=== PATIENT | female | born 1975 | race Two or more races ===

== ENCOUNTER 2020-11-10 23:12 | Emergency (ER) | payer SELFPAY ==
[~2020-11-10] VITALS: Ht 160 cm; Wt 83.6 kg
[2020-11-10 23:45] LABS: BILIRUBIN,URINE NEGATIVE (NEG); CLARITY,URINE CLEAR; COLOR,URINE YELLOW; NITRITE,URINE NEGATIVE (NEG); PH,URINE 7.5 (<5.0-8.0); PROTEIN,URINE 30 mg/dL (NEG-TRACE); UROBILINOGEN,URINE 0.2 mg/dL (0.2 mg/dL)
[2020-11-10 23:48] VITALS: BP 156/65
[2020-11-10 23:50] LABS: BACTERIA,URINE FEW /HPF (0-FEW)
[2020-11-10 23:51] LABS: BARBITURATES NEG (NEG); BENZODIAZEPINES NEG (NEG); CANNABINOIDS POS (NEG); COCAINE POS (NEG); METHADONE NEG (NEG); OPIATES NEG (NEG); PHENCYCLIDINE NEG (NEG)
[2020-11-10 23:52] LABS: AMPHETAMINE/METHAMPHETAMINE NEG (NEG)
--- NOTE | 2020-11-10 23:57 | PHYS DOC ---
Past Medical History Past Medical History: Other Additional Past Medical Histor: UC Past Surgical History: Smoking Status: Current Every Day Smoker Alcohol Use: Occasionally General Adult EDM: Chief Complaint: ABDOMINAL PAIN HPI: HPI: Patient is a 44 year old female with history of ulcerative colitis who presents to the ED today complaining of 10 out of 10 generalized abdominal pain with nausea and vomiting that began 3 days ago. Patient denies anything specifically exacerbating or relieving her pain. She states she has no medical insurance and hence has not been following up with any doctor. Denies any diarrhea. Denies any fever. She is thrashing around in bed. Review of Systems: Review of Systems: Constitutional: Denies fever or chills. [] Eyes: Denies change in visual acuity. [] HENT: Denies nasal congestion or sore throat. [] Respiratory: Denies cough or shortness of breath. [] Cardiovascular: Denies chest pain or edema. [] GI: Reports generalized abdominal pain, denies nausea, vomiting, bloody stools or diarrhea. [] : Denies dysuria. [] Musculoskeletal: Denies back pain or joint pain. [] Integument: Denies rash. [] Neurologic: Denies headache, focal weakness or sensory changes. [] Psychiatric: Denies depression or anxiety. [] Heart Score: Risk Factors: Risk Factors: DM, Current or recent (<one month) smoker, HTN, HLP, family history of CAD, obesity. Risk Scores: Score 0 - 3: 2.5% MACE over next 6 weeks - Discharge Home Score 4 - 6: 20.3% MACE over next 6 weeks - Admit for Clinical Observation Score 7 - 10: 72.7% MACE over next 6 weeks - Early Invasive Strategies Current Medications: Current Medications Medications (Trade) Dose Ordered Sig/[place] Start Time Stop Time Status Last Admin Dose Admin Famotidine (Pepcid Vial) 20 mg 1X ONCE 11/11/20 00:00 11/11/20 00:01 Morphine Sulfate (Morphine Sulfate) 5 mg 1X ONCE 11/11/20 00:00 11/11/20 00:01 Ondansetron HCl (Zofran) 4 mg 1X ONCE 11/11/20 00:00 11/11/20 00:01 Sodium Chloride 1,000 ml @ 1,000 mls/hr 1X ONCE 11/11/20 00:00 11/11/20 00:59 Allergies: Allergies: Allergies Coded Allergies Type Severity Reaction Last Updated Verified No Known Drug Allergies 11/10/20 No Physical Exam: PE: Constitutional: Thrashing around in bed. Well developed, well nourished, no acute distress, non-toxic appearance. [] HENT: Normocephalic, atraumatic, bilateral external ears normal, oropharynx moist, no oral exudates, nose normal. [] Eyes: PERRLA, EOMI, conjunctiva normal, no discharge. [] Neck: Normal range of motion, no tenderness, supple, no stridor. [] Cardiovascular:Heart rate regular rhythm, no murmur [] Lungs & Thorax: Bilateral breath sounds clear to auscultation [] Abdomen: Bowel sounds normal, soft, generalized tenderness to the abdomen, no masses, no pulsatile masses. [] Skin: Warm, dry, no erythema, no rash. [] Back: No tenderness, no CVA tenderness. [] Extremities: No tenderness, no cyanosis, no clubbing, ROM intact, no edema. [] Neurologic: Alert and oriented X 3, normal motor function, normal sensory function, no focal deficits noted. [] Psychologic: Affect normal, judgement normal, mood normal. [] Current Patient Data: Labs: Laboratory Tests Test 11/10/20 23:19 11/10/20 23:30 POC Urine HCG, Qualitative Hcg negative (Negative) Urine Collection Type Unknown Urine Color Yellow Urine Clarity Clear Urine pH 7.5 (<5.0-8.0) Urine Specific [place] 1.010 (1.000-1.030) Urine Protein 30 mg/dL (NEG-TRACE) Urine Glucose (UA) Negative mg/dL (NEG) Urine Ketones (Stick) Negative mg/dL (NEG) Urine Blood Trace (NEG) Urine Nitrite Negative (NEG) Urine Bilirubin Negative (NEG) Urine Urobilinogen Dipstick 0.2 mg/dL (0.2 mg/dL) Urine Leukocyte Esterase Negative (NEG) Urine RBC 3-5 /HPF (0-2) Urine WBC 1-4 /HPF (0-4) Urine Squamous Epithelial Cells Many /LPF Urine Bacteria Few /HPF (0-FEW) Urine Mucus Slight /LPF Urine Opiates Screen Neg (NEG) Urine Methadone Screen Neg (NEG) Urine Barbiturates Neg (NEG) Urine Phencyclidine Screen Neg (NEG) Urine Amphetamine/Methamphetamine Neg (NEG) Urine Benzodiazepines Screen Neg (NEG) Urine Cocaine Screen Pos (NEG) Urine Cannabinoids Screen Pos (NEG) Urine Ethyl Alcohol Neg (NEG) Vital Signs: Vital Signs Date Time Temp Pulse Resp B/P (MAP) Pulse Ox O2 Delivery O2 Flow Rate FiO2 11/10/20 23:48 98.3 88 20 156/65 (95) 97 Room Air 98.3 EKG: EKG: [] Radiology/Procedures: Radiology/Procedures: []PROCEDURE: CT ABDOMEN PELVIS WO CONTRAST CT abdomen pelvis without contrast dated 11/10/2020. No comparison available. CLINICAL INDICATION: Right sided abdominal pain. History of ulcerative colitis. TECHNIQUE: Contiguous axial imaging the M pelvis performed without the administration of IV or oral contrast. One or more of the following individualized dose reduction techniques were utilized for this examination: 1. Automated exposure control 2. Adjustment of the mA and/or kV according to patient size 3. Use of iterative reconstruction technique. FINDINGS: Limited images of lung bases are clear. Heart size is upper limits of normal. No pleural or pericardial effusion. Solid abdominal viscera not well evaluated in the absence of contrast material. There is diffuse low-density liver compatible with fatty infiltration. No apparent mass. Biliary tree normal in caliber. Gallbladder surgically absent. Spleen is upper limits of normal in size. Pancreas, adrenal glands and kidneys are unremarkable. No hydronephrosis. Unopacified GI tract is normal in caliber. There is circumferential wall thickening with loss of normal haustral markings involving the descending colon and sigmoid. There is also some mild wall thickening of the hepatic flexure and right colon. Nonpathologically enlarged paracolonic lymph nodes measuring up to 8 mm short axis in the ileocolic region. Small bowel normal in caliber. There borderline enlarged lymph nodes in the central mesentery. No retroperitoneal adenopathy. Appendix normal in caliber. Images of pelvis show nondistended urinary bladder. Uterus and adnexa are unremarkable. No free fluid. No pelvic adenopathy. Bone windows show no acute findings. IMPRESSION: 1. Multifocal areas of colonic wall thickening and loss of normal haustral markings, consistent with history of inflammatory bowel disease. No evidence of obstruction or acute complication. There are a few borderline enlarged pericolonic lymph nodes. 2. Fatty infiltration of the liver. 3. Status post cholecystectomy. Electronically signed by: Kristopher Barger MD (11/11/2020 12:06 AM) [facility] [place] SIGNED BY: KRISTOPHER BARGER MD DATE: 11/11/20 [id number] 0 Course & Med Decision Making: Course & Med Decision Making Pertinent Labs and Imaging studies reviewed. (See chart for details) This is a 44-year-old female patient presented to the ED today complaining of generalized abdominal pain with nausea vomiting, history of ulcerative colitis. Currently not on any medicines. UA negative for any acute findings, drug screen not done for cocaine on marijuana use. CMP with no acute findings. CBC with a WBC of 12.9. CT of the abdomen and pelvis noted for colonic wall thickening and loss of normal haustral markings, consistent with history of inflammatory bowel disease. No evidence of obstruction or acute complication. Fatty infiltration of the liver. Status post cholecystectomy. Patient was discharged home. Follow-up with GI. Anton Disclaimer: Anton Disclaimer: This electronic medical record was generated, in whole or in part, using a voice recognition dictation system. Departure Departure Impression: Primary Impression: Marijuana use Additional Impressions: Cocaine use Chronic colitis Disposition: DC HOME SELF CARE/HOMELESS Condition: STABLE Referrals: UNKNOWN PCP NAME (PCP) ENID HERNANDEZ MD follow up in one week Patient Instructions: Abdominal Pain, Cocaine Abuse-Brief, Marijuana Abuse- Brief, Ulcerative Colitis Additional Instructions: You were evaluated in the emergency room, your CAT scan was positive for chronic colitis otherwise nothing acute. We provided you a extended insurance clerk, call his office tomorrow and set up a follow-up appointment. Scripts Ciprofloxacin Hcl (CIPRO) 500 Mg Tablet 1 TAB PO BID for 7 Days, #14 TAB 0 Refills Prov: MARIONURADeepakNAYELY FLAME ANNEALING MACHINE OPERATOR 11/11/20 Metronidazole (FLAGYL) 500 Mg Tablet 500 MG PO TID, #21 TAB Prov: MUTNURAANAYELY FLAME ANNEALING MACHINE OPERATOR 11/11/20 Dicyclomine Hcl (DICYCLOMINE HCL) 20 Mg Tablet 1 TAB PO TID, #30 TAB 1 Refill Prov: MUTMARINANAYELY FLAME ANNEALING MACHINE OPERATOR 11/11/20 Prochlorperazine Maleate (Compazine) 10 Mg Tablet 1 TAB PO Q6HRS for 7 Days, #28 TAB 0 Refills Prov: MUTUNGANAYELY FLAME ANNEALING MACHINE OPERATOR 11/11/20 NAYELY TOMPKINS APRN Nov 10, 2020 23:57
[2020-11-11] MEDS ORDERED: MORPHINE SULFATE 10 MG/ML VIAL. IV ONE
[2020-11-11] MEDS ORDERED: FAMOTIDINE 20 MG/2 ML VIAL IVP ONE
[2020-11-11] MEDS ORDERED: ONDANSETRON PF 4 MG/2 ML VIAL. IVP ONE
[2020-11-11] MEDS ORDERED: IV NORMAL SALINE 1000ML BAG 1,000 ML IV ONE
[2020-11-11 00:01] LABS: CALCIUM 9.3 mg/dL (8.5-10.1); CREATININE 0.8 mg/dL (0.6-1.0); GFR 78.3; POTASSIUM 3.7 mmol/L (3.5-5.1)
[2020-11-11 00:07] LABS: ALBUMIN 3.7 g/dL (3.4-5.0); ALBUMIN/GLOBULIN RATIO 0.9 (1.0-1.7); TOTAL BILIRUBIN 0.5 mg/dL (0.2-1.0); TOTAL PROTEIN 7.7 g/dL (6.4-8.2)
--- NOTE | 2020-11-11 00:08 | RAD ---
CT abdomen pelvis without contrast dated 11/10/2020. No comparison available. CLINICAL INDICATION: Right sided abdominal pain. History of ulcerative colitis. TECHNIQUE: Contiguous axial imaging the M pelvis performed without the administration of IV or oral contrast. One or more of the following individualized dose reduction techniques were utilized for this examinat ion: 1. Automated exposure control 2. Adjustment of the mA and/or kV according to patient size 3. Use of iterative reconstruction technique. FINDINGS: Limited images of lung bases are clear. Heart size is upper limits of normal. No pleural or pericardi al effusion. Solid abdominal viscera not well evaluated in the absence of contrast material. There is diffuse low- density liver compatible with fatty infiltration. No apparent mass. Biliary tree normal in caliber. G allbladder surgically absent. Spleen is upper limits of normal in size. Pancreas, adrenal glands and kidneys are unremarkable. No h ydronephrosis. Unopacified GI tract is normal in caliber. There is circumferential wall thickening with loss of norm al haustral markings involving the descending colon and sigmoid. There is also some mild wall thicken ing of the hepatic flexure and right colon. Nonpathologically enlarged paracolonic lymph nodes measur ing up to 8 mm short axis in the ileocolic region. Small bowel normal in caliber. There borderline en larged lymph nodes in the central mesentery. No retroperitoneal adenopathy. Appendix normal in calibe r. Images of pelvis show nondistended urinary bladder. Uterus and adnexa are unremarkable. No free fluid . No pelvic adenopathy. Bone windows show no acute findings. IMPRESSION: 1. Multifocal areas of colonic wall thickening and loss of normal haustral markings, consistent with history of inflammatory bowel disease. No evidence of obstruction or acute complication. There are a few borderline enlarged pericolonic lymph nodes. 2. Fatty infiltration of the liver. 3. Status post cholecystectomy. Electronically signed by: Kristopher Barger MD (11/11/2020 12:06 AM) [facility]
[2020-11-11 00:16] LABS: BASO # 0.1 x10^3/uL (0.0-0.2); BASO % 1 % (0-3); EOS # 0.2 x10^3/uL (0.0-0.7); EOS % 1 % (0-3); HEMATOCRIT 35.7 % (36.0-47.0); HEMOGLOBIN 12.2 g/dL (12.0-15.5); LYMPH # 1.9 x10^3/uL (1.0-4.8); LYMPH % 15 % (24-48); MEAN CORPUSCULAR HEMOGLOBIN 28 pg (25-35); MEAN CORPUSCULAR HGB CONC 34 g/dL (31-37); MEAN CORPUSCULAR VOLUME 83 fL (79-100); MONO # 1.3 x10^3/uL (0.0-1.1); MONO % 10 % (0-9); NEUT # 9.4 x10^3/uL (1.8-7.7); NEUT % 73 % (31-73); PLATELET COUNT 303 x10^3/uL (140-400); RED BLOOD COUNT 4.33 x10^6/uL (3.50-5.40); RED CELL DISTRIBUTION WIDTH 14.8 % (11.5-14.5); WHITE BLOOD COUNT 12.9 x10^3/uL (4.0-11.0)
[2020-11-11] MEDS ORDERED: METR500T PO (00:22)
[2020-11-11] MEDS ORDERED: CIPR500T94 PO (00:22)
[2020-11-11] MEDS ORDERED: PROC10TA57 PO (00:22)
[2020-11-11] MEDS ORDERED: DICY20TA3 PO (00:22)
== END 2020-11-11 00:34 | disposition home or self-care (01) ==
LOC: ER 23:12
DX: K52.9 Noninfective gastroenteritis and colitis, unspecified (principal); F12.90 Cannabis use, unspecified, uncomplicated; F14.90 Cocaine use, unspecified, uncomplicated; F17.200 Nicotine dependence, unspecified, uncomplicated; Z90.49 Acquired absence of other specified parts of digestive tract
CPT/HCPCS: 36415; 74176; 80053; 80307; 81001; 81025; 83690; 85025; 96361; 96374; 96375; 99284; G0480; J2270; J2405; J3490; J7030